=== PATIENT | female | born 1990 | race Caucasian/White ===

== ENCOUNTER 2021-03-06 15:05 | Emergency (ER) | payer MEDICAID, SELFPAY ==
[2021-03-06 14:51] VITALS: BP 127/79; PULSE 111; RESP 22; TEMP 36.9; O2SAT 92; BMI 43.9
--- NOTE | 2021-03-06 15:11 | XR_ITS ---
PROCEDURE: XR CHEST 2V CLINICAL HISTORY: chest pain COMPARISON: No exams were available for comparison FINDINGS: The cardiomediastinal silhouette and pulmonary vascularity are within normal limits. The lungs are clear without infiltrates, suspicious nodules, or pleural effusions. No acute bony abnormalities. IMPRESSION: No acute findings. Dictated by: Clarence Rodriguez MD 03/06/2021 16:15 Clarence Rodriguez MD in [place] 03/06/2021 16:15
--- NOTE | 2021-03-06 15:19 | ECG_ITS ---
APPROVED REPORT Exam: Resting ECG HR:100 bpm ECG Measurements Heart Rate 100 AXES UT 150 P 39 QRSd 90 QRS 90 QT 360 T 1 QTc 464 Conclusion Normal sinus rhythm Rightward axis Borderline ECG Electronically signed by : Roger Teixeira, 03/07/2021 17:28:52
[2021-03-06 15:20] LABS: Basophils # 0.2 K/mm3 (0-0.2); Basophils % 1.3 % (0.1-2.0); Eosinophils # 0.2 K/mm3 (0.0-0.4); Eosinophils % 1.3 % (0.1-12.0); Hematocrit 47.9 % (37.0-47.0); Hemoglobin 16.2 g/dL (12.2-16.2); Lymphocytes # 6.3 K/mm3 (0.7-4.5); Lymphocytes % 35.3 % (10-50); Mean Corpuscular HGB Conc 33.8 g/dL (31.8-35.4); Mean Corpuscular Hemoglobin 30.1 pg (27.0-31.2); Mean Corpuscular Volume 89.1 fl (81-99); Mean Platelet Volume 8.1 fl (7.4-10.4); Monocytes # 1.2 K/mm3 (0.1-1.0); Monocytes % 6.7 % (1.7-9.3); Neutrophils # 9.9 K/mm3 (1.8-7.8); Neutrophils % 55.6 % (37.0-80.0); Platelet Count 429 K/mm3 (142-424); Red Blood Count 5.38 M/mm3 (4.20-5.40); Red Cell Distribution Width 12.8 % (11.5-17.5); White Blood Count 17.8 K/mm3 (4.8-10.8)
[2021-03-06 15:27] LABS: Acetaminophen < 10 ug/ml (10-30); Salicylate < 1.0 mg/dL (2.0-20.0)
[2021-03-06 15:28] LABS: MANUAL DIFFERENTIAL MANUAL DIFFERENTIAL (MANUAL DIFF)
[2021-03-06 15:31] LABS: HCG Qualitative, Serum Negative (Negative)
[2021-03-06 15:33] LABS: Ethyl Alcohol < 10 mg/dl (0-10)
[2021-03-06 15:36] LABS: Lymphocytes % 23 % (10-50); Monocytes % 4 % (2-9); Neutrophils % 66 % (42-76); Platelet Estimate Normal; RBC Morphology Normal; Total Cells Counted 100
[2021-03-06 15:43] LABS: Troponin I < 0.01 ng/ml (0.00-0.034)
[2021-03-06 16:17] VITALS: BP 127/78; PULSE 97; RESP 19; O2SAT 97
--- NOTE | 2021-03-06 16:43 | HMH.EDGENADL ---
ED Disposition Clinical Impression: Heroin overdose Qualifiers: Encounter type: initial encounter Injury intent: accidental or unintentional Qualified Code(s): T40.1X1A - Poisoning by heroin, accidental (unintentional), initial encounter Upper respiratory infection Qualifiers: URI type: unspecified URI Qualified Code(s): J06.9 - Acute upper respiratory infection, unspecified Disposition: Home, Self-Care Condition on Discharge: Fair Instructions: DI for Drug Overdose in Adults, DI for Nausea -- Adult Additional Instructions: Zofran as needed for nausea. Return to the emergency department if any worsening condition. Prescriptions: Ondansetron [Zofran 4mg ODT] 4 mg PO TIDP PRN #10 tab.rapdis PRN Reason: Nausea And Vomiting Prescription Printed Referrals: Provider,Referral, MD [Primary Care Provider] - - Critical Care Critical Care Time: No Attestation: On 03/06/21, the high probability of a clinically significant, sudden or life threatening deterioration of the following system(s) required my full and direct attention, intervention and personal management. The time I documented below is in addition to time spent performing reported procedures but includes the following listed in this critical care notation. Medical Decision Making - [place] Inquiry Pt receiving controlled substance: No Vital Signs: 03/06/21 14:51 03/06/21 16:17 Temperature 98.5 F Temperature Source Oral Pulse Rate 97 H Pulse Rate [Left Radial] 111 H Respiratory Rate 22 19 Blood Pressure 127/78 Blood Pressure [Right Arm] 127/79 Blood Pressure Mean [Right Arm] 95 Blood Pressure Source [Right Arm] Automatic Cuff Blood Pressure Position [Right Arm] Sitting 02 Sat by Pulse Oximetry 92 L 97 Oxygen Delivery Method Room Air - Lab Data Lab Results 03/06/21 14:52: WBC 17.8 H, RBC 5.38, Hgb 16.2, Hct 47.9 H, MCV 89.1, MCH 30.1, MCHC 33.8, RDW 12.8, Plt Count 429 H, MPV 8.1, Neut % (Auto) 55.6, Lymph % (Auto) 35.3, [place] % (Auto) 6.7, Eos % (Auto) 1.3, Baso % (Auto) 1.3, Neut # (Auto) 9.9 H, Lymph # (Auto) 6.3 H, [place] # (Auto) 1.2 H, Eos # (Auto) 0.2, Baso # (Auto) 0.2, Total Counted 100, Neutrophils % (Manual) 66, Band Neutrophils % 7.0, Lymphocytes % (Manual) 23, Monocytes % (Manual) 4, Platelet Estimate Normal, RBC Morphology Normal 03/06/21 14:52: Serum HCG, Qual Negative 03/06/21 14:52: Troponin I < 0.01, Salicylates < 1.0 L, Acetaminophen < 10 L 03/06/21 14:52: Plasma/Serum Alcohol < 10 03/06/21 16:35: Urine Color Yellow, Urine Appearance Clear, Urine pH 6.0, Ur Specific [place] >= 1.030, Urine Protein 1+, Urine Glucose (UA) Negative, Urine Ketones Negative, Urine Blood Negative, Urine Nitrate Negative, Urine Bilirubin Negative, Urine Urobilinogen 1.0, Ur Leukocyte Esterase Negative, Urine RBC None, Urine WBC None, Ur Squamous Epith Cells 5-10, Urine Bacteria None 03/06/21 16:35: Urine Opiates Screen Negative, Urine Methadone Screen Negative, Ur Barbituates Screen Negative, Ur Phencyclidine Scrn Negative, Ur Amphetamines Screen Negative, U Benzodiazepines Scrn Negative, Urine Cocaine Screen Negative, U Marijuana (THC) Screen Negative 03/06/21 17:38: SARS-CoV-2 (PCR) Not detected, Influenza A Untype (PCR) Not detected, Influenza Type B (PCR) Not detected Result diagrams: 03/06/21 14:52 Orders (Tests/Meds): ED MEDICATIONS Discontinued Medications Generic Name Dose Route Start Last Admin Trade Name Crystal PRN Reason Stop Dose Admin Ondansetron HCl 4 mg 03/06/21 18:47 03/06/21 18:54 Ondansetron 4mg/2ml Vial IV 03/06/21 18:48 4 mg ONCE ONE Administration Ondansetron HCl 4 mg 03/06/21 18:47 03/06/21 18:54 Ondansetron 4mg/2ml Vial IV 03/06/21 18:48 Not Given ONCE ONE ORDERS Category Date Time Status Troponin I Q3H Lab 03/06/21 18:15 Ordered Troponin I Q3H Lab 03/06/21 21:15 Ordered - Radiology Data #1 Image(s): Chest Image Reviewed: Yes I have reviewed radiologist's interpretati
[2021-03-06 16:52] LABS: Microscopic, Urine URINE MICROSCOPIC (MICROSCOPIC)
[2021-03-06 16:56] LABS: Appearance,Urine CLEAR (Clear); Bilirubin,Urine Negative (Negative); Blood, Urine Negative (Negative); Color,Urine YELLOW (Yellow); Glucose,Urine (UA) Negative (Negative); Ketones,Urine Negative (Negative); Leukocyte Esterase,Urine Negative (Negative); Nitrate,Urine Negative (Negative); Protein,Urine 1+ (Negative); Specific Gravity, Urine >= 1.030 (1.005-1.030)
[2021-03-06 17:06] LABS: Amphetamine/Metha Screen,Urine Negative ng/ml (<1000)
[2021-03-06 17:07] LABS: Barbiturates Screen,Urine Negative ng/ml (<200); Benzodiazepines Screen,Urine Negative ng/ml (<200)
[2021-03-06 17:08] LABS: Cannabinoid Screen,Urine Negative ng/ml (<50)
[2021-03-06 17:09] LABS: Cocaine Screen,Urine Negative ng/ml (<300); Methadone Screen,Urine Negative ng/ml (<300)
[2021-03-06 17:10] LABS: Opiate Screen,Urine Negative ng/ml (<300)
[2021-03-06 17:11] LABS: Phencyclidine Screen,Urine Negative ng/ml (<25)
[2021-03-06 17:57] LABS: Coronavirus 19, PCR Not Detected (NotDetected); Influenza A, PCR Not Detected (NotDetected); Influenza B, PCR Not Detected (NotDetected)
[2021-03-06 19:14] VITALS: BP 127/85; PULSE 75; RESP 16; TEMP 36.8; O2SAT 97
== END 2021-03-06 19:16 | disposition home or self-care (01) ==
PROVIDERS: Emergency Provider Emergency Medicine
DX: T40.1X1A Poisoning by heroin, accidental (unintentional), initial encounter (principal); J06.9 Acute upper respiratory infection, unspecified
CPT/HCPCS: 71046; 80305; 80329; 81001; 84484; 84703; 85007; 85025; 93005; 96374; 99284; J2405; U0003

== ENCOUNTER 2021-04-29 18:51 | Emergency (ER) | payer MEDICAID, SELFPAY ==
[2021-04-29 18:52] VITALS: BMI 43.9
--- NOTE | 2021-04-29 19:27 | XR_ITS ---
PROCEDURE INFORMATION: Exam: XR Chest Exam date and time: 04/29/2021 7:27 PM Age: 30 years old Clinical indication: Cough and fever; Patient HX: Possible covid, patient states she smokes and vapes TECHNIQUE: Imaging protocol: XR of the chest. Views: 2 views. COMPARISON: CR XR CHEST 2V 03/06/2021 3:35 PM FINDINGS: Lungs: Unremarkable. No consolidation. Pleural spaces: Unremarkable. No pleural effusion. No pneumothorax. Heart/Mediastinum: Unremarkable. No cardiomegaly. Bones/joints: Unremarkable. IMPRESSION: No acute findings. Please note that this does not exclude COVID-19 infection.
[2021-04-29 19:30] VITALS: BP 130/58; PULSE 95; RESP 22; TEMP 36.8; O2SAT 99; BMI 43.9
[2021-04-29 19:40] LABS: Coronavirus 19, PCR Not Detected (NotDetected); Influenza A, PCR Not Detected (NotDetected); Influenza B, PCR Not Detected (NotDetected)
[2021-04-29 19:56] LABS: Basophils # 0.2 K/mm3 (0-0.2); Basophils % 1.5 % (0.1-2.0); Eosinophils # 0.3 K/mm3 (0.0-0.4); Eosinophils % 2.3 % (0.1-12.0); Hematocrit 45.6 % (37.0-47.0); Hemoglobin 15.2 g/dL (12.2-16.2); Lymphocytes # 4.9 K/mm3 (0.7-4.5); Lymphocytes % 34.1 % (10-50); Mean Corpuscular HGB Conc 33.5 g/dL (31.8-35.4); Mean Corpuscular Hemoglobin 30.4 pg (27.0-31.2); Mean Corpuscular Volume 90.9 fl (81-99); Mean Platelet Volume 8.5 fl (7.4-10.4); Monocytes # 0.7 K/mm3 (0.1-1.0); Monocytes % 5.2 % (1.7-9.3); Neutrophils # 8.2 K/mm3 (1.8-7.8); Platelet Count 425 K/mm3 (142-424); Red Blood Count 5.01 M/mm3 (4.20-5.40); White Blood Count 14.3 K/mm3 (4.8-10.8)
[2021-04-29 20:08] LABS: Alanine Aminotransferase 21 U/L (12-78); Albumin Level 4.2 g/dl (3.5-5.0); Albumin/Globulin Ratio 1.2 (1.1-1.8); Alkaline Phosphatase 95 U/L (38-126); Anion Gap 14.7 mEq/L (5-15); Aspartate Amino Transferase 27 U/L (14-36); Bilirubin,Total 0.6 mg/dl (0.2-1.3); Blood Urea Nitrogen 8 mg/dl (7-17); Calcium 9.1 mg/dl (8.4-10.2); Carbon Dioxide 25 mmol/L (22.0-30.0); Chloride 105 mmol/L (98-107); Creatinine Clearance Estimated 109 mL/min (50-200); Estimated Glomerular Filt Rate 118 ml/min (>60); GFR (African American) 143 ML/MIN (>60); Globulin 3.5 g/dL (1.3-3.2); Glucose 122 mg/dl (74-100); Potassium 4.7 mmoL/L (3.5-5.1); Sodium 140 mmol/L (136-145); Total Protein,Serum 7.7 g/dl (6.3-8.2)
[2021-04-29 20:13] LABS: C-Reactive Protein 12.4 mg/L (0-4)
[2021-04-29 20:26] LABS: Procalcitonin 0.047 ng/mL (0.0-2.0)
[2021-04-29 20:40] LABS: Erythrocyte Sedimentation Rate 74 mm/hr (0-20)
--- NOTE | 2021-04-29 23:24 | HMH.EDURI ---
ED Disposition Clinical Impression: Bronchitis, SIRS (systemic inflammatory response syndrome) Disposition: Home, Self-Care Condition on Discharge: Good Instructions: DI for Acute Bronchitis Additional Instructions: fluids and see pcp for follow up Prescriptions: levoFLOXacin [Levaquin 500mg tab] 500 mg PO DAILY #7 tab Transmission Status: Pending to [facility] predniSONE [Prednisone 20mg Tab] 20 mg PO BID #10 tab Transmission Status: Pending to [facility] Referrals: Provider,Referral, [Primary Care Provider] - - Critical Care Critical Care Time: No Attestation: On 04/29/21, the high probability of a clinically significant, sudden or life threatening deterioration of the following system(s) required my full and direct attention, intervention and personal management. The time I documented below is in addition to time spent performing reported procedures but includes the following listed in this critical care notation. Medical Decision Making - Medical Records Medical records reviewed: Yes: I reviewed the patient's medical records. - [place] Inquiry Pt receiving controlled substance: No Vital Signs: 04/29/21 19:30 Temperature 98.3 F Temperature Source Oral Pulse Rate [Right] 95 H Respiratory Rate 22 Blood Pressure [Left Arm] 130/58 L Blood Pressure Mean [Left Arm] 82 Blood Pressure Source [Left Arm] Automatic Cuff Blood Pressure Position [Left Arm] Sitting 02 Sat by Pulse Oximetry 99 Oxygen Delivery Method Room Air - Lab Data Lab results reviewed: Yes: I reviewed the patient's lab results. Lab Results 04/29/21 19:24: SARS-CoV-2 (PCR) Not detected, Influenza A Untype (PCR) Not detected, Influenza Type B (PCR) Not detected 04/29/21 19:45: WBC 14.3 H, RBC 5.01, Hgb 15.2, Hct 45.6, MCV 90.9, MCH 30.4, MCHC 33.5, RDW 13.0, Plt Count 425 H, MPV 8.5, Neut % (Auto) 57.0, Lymph % (Auto) 34.1, [place] % (Auto) 5.2, Eos % (Auto) 2.3, Baso % (Auto) 1.5, Neut # (Auto) 8.2 H, Lymph # (Auto) 4.9 H, [place] # (Auto) 0.7, Eos # (Auto) 0.3, Baso # (Auto) 0.2, ESR 74 H 04/29/21 19:45: Sodium 140, Potassium 4.7, Chloride 105, Carbon Dioxide 25, Anion Gap 14.7, BUN 8, Creatinine 0.60, Estimated Creat Clear 109, Estimated GFR 118, Est GFR ( Amer) 143, Glucose 122 H, Calcium 9.1, Total Bilirubin 0.6, AST 27, ALT 21, Alkaline Phosphatase 95, C-Reactive Protein 12.4 H, Total Protein 7.7, Albumin 4.2, Globulin 3.5 H, Albumin/Globulin Ratio 1.2, Procalcitonin 0.047 Result diagrams: 04/29/21 19:45 04/29/21 19:45 Orders (Tests/Meds): ED MEDICATIONS Generic Name Dose Route Start Last Admin Trade Name Freq PRN Reason Stop Dose Admin Sodium Chloride 1,000 mls @ 999 mls/hr 04/29/21 19:30 04/29/21 20:00 Sod Chlor 0.9% 1000ml Bag IV 04/29/21 20:30 999 mls/hr .Q1H1M KLARISSA Administration Discontinued Medications Generic Name Dose Route Start Last Admin Trade Name Freq PRN Reason Stop Dose Admin Dexamethasone Sodium Phosphate 10 mg 04/29/21 19:27 04/29/21 20:00 Dexamethasone 4mg/Ml 1ml Vial IV 04/29/21 19:28 10 mg ONCE ONE Administration Ketorolac Tromethamine 30 mg 04/29/21 19:27 04/29/21 20:00 Ketorolac 30mg/Ml Vial IV 04/29/21 19:28 30 mg ONCE ONE Administration - Radiology Data #1 Image(s): Chest Image Reviewed: Yes I have reviewed radiologist's interpretation Preliminary Findings: Normal/NAD Medical Decision Narrative: has bronchitis and no covid -19 and stable labs URI/Sore Throat HPI - General Chief Complaint: Upper Respiratory Infection Stated Complaint: FEVER,COUGH,L FOOT SWOLLEN Time Seen by Provider: 04/29/21 20:50 Mode of Arrival: Ambulatory Source of Information: Patient, Medical Record Limitations: No Limitations Description of Symptoms (Recalled from ER Triage Doc. by RN): Pt states she has SOA and cough for a week, and now her cough has become productive of green mucous. Pt had fever at home, but has resolved wi
[2021-04-29 23:42] VITALS: BP 142/62; PULSE 84; RESP 18; TEMP 36.8; O2SAT 99
== END 2021-04-29 23:44 | disposition home or self-care (01) ==
PROVIDERS: Emergency Provider Emergency Medicine
DX: J20.9 Acute bronchitis, unspecified (principal); R65.10 Systemic inflammatory response syndrome (SIRS) of non-infectious origin without acute organ dysfunction; F17.210 Nicotine dependence, cigarettes, uncomplicated
CPT/HCPCS: 71046; 80053; 84145; 85025; 85651; 86140; 96365; 96375; 99283; U0003

== ENCOUNTER 2021-05-14 09:29 | Emergency (ER) | payer MEDICAID, SELFPAY ==
[2021-05-14 10:12] VITALS: BP 126/77; PULSE 112; RESP 21; TEMP 37.2; O2SAT 96; BMI 44.8
--- NOTE | 2021-05-14 10:18 | HMH.EDUTC ---
[facility] [place] Clinical Impression: Sinusitis, Encounter for laboratory testing for COVID-19 virus Disposition: Home, Self-Care Condition on Discharge: Good Instructions: Sinusitis Additional Instructions: *Monitor Temp, Over the counter Motrin or Tylenol as directed/as needed Tylenol every 4 hours and Motrin every 6 hours (as long as your family doctor has told you that you can take it) for fever or pain. and straight to ER if unable to lower temp less than 101.0 after medication given *Warm salt water gargles may help to soothe the throat *Throat Lozenges *Warm fluids like tea with honey may help to soothe the throat *Sleep elevated *Humidifier/Vaporizer Follow up IMMEDIATELY for new or worsening symptoms or no Noticeable improvement over the next 48-72 hours. 911 for difficulty breathing or swallowing You were tested for today for COVID19 your test result should be back in the next 24-48 hours, You was give handout for how to log onto the [facility] [employer] Portal to check your results if you have trouble accessing or do not have internet you may call You was given a handout with instructions for Self Quarantine and Self isolation for while you wait on test results and what to do if they are positive If you are positive the Health Dept will be contacting you also Make sure to take your Vitamins Vit. C Vit D and Zinc if you can take them Prescriptions: Fluticasone Propionate [Flonase Allergy Relief NS] 1 spray NS DAILY #1 each Transmission Status: Received by [facility] Azithromycin [Z-Jayden 250mg Tab] 250 mg PO DIRECTED #6 tab Transmission Status: Received by [facility] Referrals: Benjamin Chen MD [Primary Care Provider] - As needed Forms: Work/School Release Time of Disposition: 10:30 Medical Decision Making - [place] Inquiry Pt receiving controlled substance: No [place] was queried for this patient: No Vital Signs: 05/14/21 10:12 05/14/21 10:33 Temperature 99 F 99 F Temperature Source Oral Pulse Rate 112 H Pulse Rate [Left] 112 H Respiratory Rate 21 21 Blood Pressure 126/77 Blood Pressure [Right Arm] 126/77 Blood Pressure Mean [Right Arm] 93 02 Sat by Pulse Oximetry 96 [facility] [place] [facility] [place] - General Stated complaint: covid symptoms Time Seen by Provider: 05/14/21 10:18 Mode of Arrival: Ambulatory Source of Information: Patient Limitations: No Limitations Description of Symptoms (Recalled from Triage Doc. by RN): pt c/o fever, cough, body aches, and diarhea. pt was dx with bronchitis a month ago and still is not feeling any better. HEENT Symptoms (Recalled from RN notes): No Resp Symptoms (Recalled from RN notes): Yes (cough) Skin Symptoms (Recalled from RN notes): No MS Symptoms (Recalled from RN notes): No Functional Status (Recalled from RN notes): body aches and fever hx - History of Present Illness Provider Complaint: Patient states that she was seen and treated about a month ago for Bronchitis and has continued to feels bad off and on since States that she has started to have cough, body aches, fever, and chills States that this morning it was like she couldnt get warm and she was concerned she was getting sick again with the bronchitis - Related Data Previous Rx's Medication Instructions Recorded Ondansetron [Zofran 4mg ODT] 4 mg PO TIDP PRN #10 tab.rapdis 03/06/21 levoFLOXacin [Levaquin 500mg 500 mg PO DAILY #7 tab 04/29/21 tab] predniSONE [Prednisone 20mg 20 mg PO BID #10 tab 04/29/21 Tab] Azithromycin [Z-Jayden 250mg Tab] 250 mg PO DIRECTED #6 tab 05/14/21 Fluticasone Propionate [Flonase 1 spray NS DAILY #1 each 05/14/21 Allergy Relief NS] Allergies Allergy/AdvReac Type Severity Reaction Status Date / Time meperidine [From Demerol] Allergy Verified 05/14/21 10:16 From Penicillin V Potassium Allergy Unknown Uncoded 08/09/17 14:54 Penicillin Allergy Unknown Uncoded 08/09/17 14:54 - Worker's Comp Is this a Worker's Comp case?:
[2021-05-14 10:33] VITALS: BP 126/77; PULSE 112; RESP 21; TEMP 37.2
== END 2021-05-14 10:34 | disposition home or self-care (01) ==
PROVIDERS: Emergency Provider Nurse Practitioner; PCP Internal Medicine Nephrology
DX: U07.1 COVID-19 (principal); R50.9 Fever, unspecified; R05 Cough; R52 Pain, unspecified; R19.7 Diarrhea, unspecified; Z72.0 Tobacco use; Z88.0 Allergy status to penicillin; Z88.8 Allergy status to other drugs, medicaments and biological substances
CPT/HCPCS: 99202; C9803; G0463; U0003; U0005

== ENCOUNTER → 2021-05-27 14:42 | Outpatient (CLI) | payer MEDICAID, SELFPAY | PROVIDERS: Visit Provider Nurse Practitioner | DX: Z20.822 Contact with and (suspected) exposure to COVID-19 (principal); U07.1 COVID-19 | CPT/HCPCS: C9803; U0003; U0005 ==

== ENCOUNTER 2021-06-30 19:27 | Emergency (ER) | payer MEDICAID, SELFPAY ==
[2021-06-30 19:41] VITALS: BP 133/83; PULSE 111; RESP 16; TEMP 36.9; O2SAT 99; BMI 44.8
[2021-06-30 21:03] VITALS: PULSE 111; RESP 16; O2SAT 99; BMI 44.8
--- NOTE | 2021-06-30 21:27 | HMH.EDUTC ---
[facility] [place] Disposition Clinical Impression: Dependent edema Disposition: Home, Self-Care Condition on Discharge: Good Instructions: DI for Dependent Edema, Low-Sodium Diet Additional Instructions: Low salt diet may help with swelling in feet and ankle When sitting make sure to prop legs up above the level of the heart to help with swelling Wear supportive socks and shoes may help with swelling in ankle and feet Follow up with your Family Doctor if swelling returns Referrals: Provider,Referral, MD [Primary Care Provider] - As needed Forms: Work/School Release Time of Disposition: 21:31 Medical Decision Making - [place] Inquiry Pt receiving controlled substance: No [place] was queried for this patient: No Vital Signs: 06/30/21 19:41 06/30/21 21:03 06/30/21 21:30 Temperature 98.4 F 98.4 F Temperature Source Oral Pulse Rate 111 H Pulse Rate [Right] 111 H 111 H Respiratory Rate 16 16 16 Blood Pressure 133/83 Blood Pressure [Right Arm] 133/83 Blood Pressure Mean [Right Arm] 99 02 Sat by Pulse Oximetry 99 99 Oxygen Delivery Method Room Air Room Air [facility] [place] HPI - General Stated complaint: feet and ankle swelling Time Seen by Provider: 06/30/21 21:28 Mode of Arrival: Ambulatory Source of Information: Patient Limitations: No Limitations Description of Symptoms (Recalled from Triage Doc. by RN): per triage for decision: pt c/o bilateral ankle and feet swelling x one month HEENT Symptoms (Recalled from RN notes): No Resp Symptoms (Recalled from RN notes): No Skin Symptoms (Recalled from RN notes): No MS Symptoms (Recalled from RN notes): No Functional Status (Recalled from RN notes): na - History of Present Illness Provider Complaint: Patient states that she has been having swelling on and off in both ankle for over a month States that swelling is worse when she has been walking on them alot or sitting too much States that she has been trying to get into see her PCP but they will not take her insurance right now so she came in to have them checked at the [facility] - Related Data Previous Rx's Medication Instructions Recorded Ondansetron [Zofran 4mg ODT] 4 mg PO TIDP PRN #10 tab.rapdis 03/06/21 levoFLOXacin [Levaquin 500mg 500 mg PO DAILY #7 tab 04/29/21 tab] predniSONE [Prednisone 20mg 20 mg PO BID #10 tab 04/29/21 Tab] Azithromycin [Z-Jayden 250mg Tab] 250 mg PO DIRECTED #6 tab 05/14/21 Fluticasone Propionate [Flonase 1 spray NS DAILY #1 each 05/14/21 Allergy Relief NS] Allergies Allergy/AdvReac Type Severity Reaction Status Date / Time meperidine [From Demerol] Allergy Verified 05/14/21 10:16 From Penicillin V Potassium Allergy Unknown Uncoded 08/09/17 14:54 Penicillin Allergy Unknown Uncoded 08/09/17 14:54 - Worker's Comp Is this a Worker's Comp case?: No [facility] History - Hepatitis A Screen Drug use history?: No High risk sexual behaviors?: No History of sexually transmitted infection?: No Currently employed?: No Childcare worker?: No Do you have indoor plumbing?: Yes Do you have electricity?: Yes Attestation statement:: This patient has been screened for Hepatitis A risk factors. I have reviewed the patient's past medical history: Yes Medical History: Denies:: Diabetes Mellitus Type 1, Diabetes Mellitus Type 2 - Social History Smoking Status: Current every day smoker Tobacco Type: cigarettes # Packs/Day (cigarettes): 1 Alcohol Intake: never Substance Use Type: heroin, opiates, methamphetamine Occupational Status: employed ROS Obtained: Yes All systems reviewed & no additional complaints, Yes Systems reviewed as appropriate & no additional complaints - Constitutional Constitutional: Reports system reviewed and no additional complaints, except as docu, Denies body ache, Denies chills, Denies fever(s) - Eyes Eyes: Reports system reviewed and no additional complaints, except as docu - ENT Ears, Nose, Mouth, and Throat: Reports system reviewed and
[2021-06-30 21:30] VITALS: BP 133/83; PULSE 111; RESP 16; TEMP 36.9; O2SAT 99
== END 2021-06-30 21:40 | disposition home or self-care (01) ==
LOC: ER 19:41 → UTC 19:44
PROVIDERS: Emergency Provider Nurse Practitioner
DX: R22.41 Localized swelling, mass and lump, right lower limb (principal); R22.42 Localized swelling, mass and lump, left lower limb; F17.210 Nicotine dependence, cigarettes, uncomplicated; Z88.0 Allergy status to penicillin
CPT/HCPCS: 99202; G0463

== ENCOUNTER 2021-09-22 17:52 | Emergency (ER) | payer MEDICAID, SELFPAY ==
[2021-09-22 18:55] VITALS: BP 116/74; PULSE 91; RESP 22; TEMP 36.9; O2SAT 98; BMI 47.5
[2021-09-22 19:42] LABS: UTC Influenza A Antigen Negative (Negative)
[2021-09-22 19:43] LABS: UTC Influenza B Antigen Negative (Negative)
--- NOTE | 2021-09-22 19:45 | HMH.EDUTC ---
[facility] [place] Clinical Impression: Viral upper respiratory tract infection with cough Disposition: Home, Self-Care Condition on Discharge: Good Instructions: Cough, Sore Throat, DI for Fever (Symptom) -- Adult Additional Instructions: *Monitor Temp, Over the counter Motrin or Tylenol as directed/as needed Tylenol every 4 hours and Motrin every 6 hours (as long as your family doctor has told you that you can take it) for fever or pain. and straight to ER if unable to lower temp less than 101.0 after medication given *Warm salt water gargles may help to soothe the throat *Throat Lozenges *Warm fluids like tea with honey may help to soothe the throat *Sleep elevated *Humidifier/Vaporizer *Bromfed may cause drowsiness. Know how it effects you (your child) before driving, caring for small child, or sending your child to school. Not other antihistamines/allergy medications while taking bromfed Your throat swab was sent for culture. Those results are typically sent to your primary care. Be sure to follow up in 2-3 days with your family doctor/primary care physician if no improvement so they can review those result and treat if necessary. If you don?t have a primary care doctor, I recommend you get one but in the mean time, you will have to return to a walk in clinic Follow up IMMEDIATELY for new or worsening symptoms or no Noticeable improvement over the next 48-72 hours. 911 for difficulty breathing or swallowing You were tested for today for COVID19 your test result should be back in the next 24-72 hours, you may check your results on the [facility] [employer] [facility] portal if you have trouble logging on you may call support to help you If you are positive someone from the hospital will be calling you Make sure to take your Vitamins Vit. C Vit D and Zinc if you can take them Prescriptions: Brompheniramine/Pseudoephed/Dm [Bromfed Dm Cough Syrup] 5 - 10 ml PO Q46H PRN #200 ml PRN Reason: Cough Transmission Status: Pending to [facility] Referrals: Provider,Referral, [Primary Care Provider] - As needed Forms: Work/School Release Time of Disposition: 20:19 Medical Decision Making - [place] Inquiry Pt receiving controlled substance: No [place] was queried for this patient: No Vital Signs: 09/22/21 18:55 Temperature 98.5 F Temperature Source Oral Pulse Rate [Left Brachial] 91 H Respiratory Rate 22 Blood Pressure [Right Arm] 116/74 Blood Pressure Mean [Right Arm] 88 Blood Pressure Source [Right Arm] Automatic Cuff Blood Pressure Position [Right Arm] Sitting 02 Sat by Pulse Oximetry 98 Oxygen Delivery Method Room Air - Lab Data Lab results reviewed: Yes: I reviewed the patient's lab results. Lab Results 09/22/21 19:08: Influenza Type A Ag Negative, Influenza Type B Ag Negative 09/22/21 19:08: Group A Strep Rapid Negative Orders (Tests/Meds): ORDERS Category Date Time Status Covid-19 Nasal PCR ([facility]) Routine Lab 09/22/21 19:02 Received Strep Screen Confirmation Stat Micro 09/22/21 19:08 Received [facility] UTC HPI - General Stated complaint: covid test/treated for symptoms Time Seen by Provider: 09/22/21 19:45 Mode of Arrival: Ambulatory Source of Information: Patient Limitations: No Limitations Description of Symptoms (Recalled from Triage Doc. 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
[2021-09-22 20:04] LABS: Strep Scrn Group A (Rapid) Negative (Negative)
[2021-09-22 20:12] VITALS: BP 116/74; PULSE 91; RESP 22; TEMP 36.9; O2SAT 98
== END 2021-09-22 20:27 | disposition home or self-care (01) ==
PROVIDERS: Emergency Provider Nurse Practitioner
DX: J06.9 Acute upper respiratory infection, unspecified (principal); U07.1 COVID-19; Z88.0 Allergy status to penicillin
CPT/HCPCS: 87430; 87804; 99203; C9803; G0463; U0003; U0005

== ENCOUNTER 2021-10-27 19:34 | Emergency (ER) | payer MEDICAID, SELFPAY ==
[2021-10-27 19:35] VITALS: BP 137/96; PULSE 73; RESP 16; TEMP 36.8; O2SAT 98; BMI 44.8
--- NOTE | 2021-10-27 20:41 | HMH.EDUTC ---
[facility] [place] Clinical Impression: Strep throat Disposition: Home, Self-Care Condition on Discharge: Good Instructions: Strep Throat, DI for Strep Throat Additional Instructions: Drink plenty of fluids. Take tylenol or ibuprofen for pain or fever. Take the medications as directed. Follow up with your regular doctor. GO TO THE ER FOR ANY WORSENING SYMPTOMS Prescriptions: Ondansetron [Zofran 4mg ODT] 4 mg PO Q8HP PRN #20 tab PRN Reason: Nausea Transmission Status: [id number] methylPREDNISolone [Medrol] 4 mg PO DIRECTED 6 Days #21 packet Transmission Status: [facility] by [facility] Cefdinir [Omnicef 300mg Capsule] 300 mg PO BID #20 cap Transmission Status: [facility] Referrals: Provider,Referral, [Primary Care Provider] - Time of Disposition: 21:04 Medical Decision Making - Medical Records Medical records reviewed: No: I reviewed the patient's medical records. - [place] Inquiry Pt receiving controlled substance: No Vital Signs: 10/27/21 19:35 10/27/21 21:04 Temperature 98.2 F 98.2 F Temperature Source Oral Oral Pulse Rate 74 Pulse Rate [Right] 73 Respiratory Rate 16 16 Blood Pressure 137/96 H Blood Pressure [Right Arm] 137/96 H Blood Pressure Mean [Right Arm] 109 Blood Pressure Source [Right Arm] Automatic Cuff Blood Pressure Position [Right Arm] Sitting 02 Sat by Pulse Oximetry 98 Oxygen Delivery Method Room Air Room Air - Lab Data Lab results reviewed: Yes: I reviewed the patient's lab results. Lab Results 10/27/21 20:49: Strep Scn Rapid Clinic Positive A [facility] [place] HPI - General Stated complaint: sore throat; sinus pressure Time Seen by Provider: 10/27/21 21:01 - History of Present Illness Provider Complaint: She states that she has had a sore throat for the past 2 days. - Related Data Previous Rx's Medication Instructions Recorded Brompheniramine/Pseudoephed/Dm 5 - 10 ml PO Q46H PRN #200 ml 09/22/21 [Bromfed Dm Cough Syrup] Cefdinir [Omnicef 300mg Capsule] 300 mg PO BID #20 cap 10/27/21 Ondansetron [Zofran 4mg ODT] 4 mg PO Q8HP PRN #20 tab 10/27/21 methylPREDNISolone [Medrol] 4 mg PO DIRECTED 6 Days #21 10/27/21 packet Allergies Allergy/AdvReac Type Severity Reaction Status Date / Time meperidine [From Demerol] Allergy Verified 05/14/21 10:16 Penicillins Allergy Verified 09/22/21 19:14 [facility] History - Hepatitis A Screen Attestation statement:: This patient has been screened for Hepatitis A risk factors. I have reviewed the patient's past medical history: Yes Medical History: Denies:: Diabetes Mellitus Type 1, Diabetes Mellitus Type 2 - Social History Smoking Status: Current every day smoker Tobacco Type: cigarettes # Packs/Day (cigarettes): 1 Alcohol Intake: never Substance Use Type: heroin, opiates, methamphetamine Occupational Status: other ROS Obtained: Yes All systems reviewed & no additional complaints - Constitutional Constitutional: Reports as per HPI - Eyes Eyes: Denies eye discharge - ENT Ears, Nose, Mouth, and Throat: Reports as per HPI - Cardiovascular Cardiovascular: Denies chest pain - Respiratory Respiratory: Denies chest congestion, Reports cough Physical Exam - General General appearance: alert, in no apparent distress - Head Head exam: atraumatic, normocephalic, normal inspection - Eye Eye exam: Present: normal appearance, PERRL, EOMI - ENT ENT exam: Present: mucous membranes moist, normal external ear exam - Expanded ENT Exam TM/Canal exam: Bilateral TM: erythema, bulging Nose exam: Absent: sinus tenderness Nasal speculum exam: Bilateral: normal Mouth exam: Present: normal external inspection, tongue normal. Absent: drooling Teeth exam: Present: normal inspection Throat exam: Present: tonsillar erythema, tonsillomegaly, tonsillar exudate. Absent: R peritonsillar mass, L peritonsillar
[2021-10-27 20:54] LABS: UTC Strep Screen (Rapid) Positive (Negative)
[2021-10-27 21:04] VITALS: BP 137/96; PULSE 74; RESP 16; TEMP 36.8; O2SAT 98
== END 2021-10-27 21:04 | disposition home or self-care (01) ==
PROVIDERS: Emergency Provider Nurse Practitioner Family
DX: J02.0 Streptococcal pharyngitis (principal); F17.210 Nicotine dependence, cigarettes, uncomplicated
CPT/HCPCS: 87880; 99212; G0463

== ENCOUNTER 2021-12-27 10:56 | Emergency (ER) | payer MEDICAID, SELFPAY ==
[2021-12-27 10:57] VITALS: BP 145/89; PULSE 95; RESP 16; TEMP 36.9; O2SAT 98; BMI 47.5
--- NOTE | 2021-12-27 11:01 | HMH.EDNVD ---
ED Disposition Clinical Impression: Gastroenteritis Disposition: Home, Self-Care Condition on Discharge: Fair Instructions: DI for Diarrhea and Traveler's Diarrhea -- Adult, DI for Nausea -- Adult, Nausea and Vomiting-Adult Additional Instructions: Please stick to a clear liquid diet for the next day or 2. Return to the emergency department if you feel worse in any way. Follow-up with your primary care physician in about 3 to 4 days if you do not improve. Prescriptions: Metoclopramide HCl [Reglan 10mg Tab] 10 mg PO QID PRN #20 tab PRN Reason: Nausea Transmission Status: Pending to [id number] Referrals: Provider,Referral, [Primary Care Provider] - Time of Disposition: 13:14 - Critical Care Critical Care Time: No Attestation: On , the high probability of a clinically significant, sudden or life threatening deterioration of the following system(s) required my full and direct attention, intervention and personal management. The time I documented below is in addition to time spent performing reported procedures but includes the following listed in this critical care notation. Medical Decision Making - [place] Inquiry Pt receiving controlled substance: No Vital Signs: 12/27/21 10:57 Temperature 98.5 F Temperature Source Oral Pulse Rate [Radial] 95 H Respiratory Rate 16 Blood Pressure [Right Arm] 145/89 H Blood Pressure Mean [Right Arm] 107 Blood Pressure Position [Right Arm] Sitting 02 Sat by Pulse Oximetry 98 Oxygen Delivery Method Room Air - Lab Data Lab results reviewed: Yes: I reviewed the patient's lab results. Lab Results 12/27/21 11:15: Urine Color Yellow, Urine Appearance Clear, Urine pH 7.5, Ur Specific [place] 1.015, Urine Protein Negative, Urine Glucose (UA) Negative, Urine Ketones Negative, Urine Blood Negative, Urine Nitrate Negative, Urine Bilirubin Negative, Urine Urobilinogen 0.2, Ur Leukocyte Esterase Trace, Urine RBC Occasional, Urine WBC Occasional, Ur Squamous Epith Cells 3-5, Urine Bacteria 1+ 12/27/21 11:25: WBC 13.4 H, RBC 5.60 H, Hgb 17.0 H, Hct 49.7 H, MCV 88.8, MCH 30.3, MCHC 34.2, RDW 13.8, Plt Count 436 H, MPV 8.2, Neut % (Auto) 68.6, Lymph % (Auto) 18.7, [place] % (Auto) 6.9, Eos % (Auto) 2.7, Baso % (Auto) 3.1 H, Neut # (Auto) 9.2 H, Lymph # (Auto) 2.5, [place] # (Auto) 0.9, Eos # (Auto) 0.4, Baso # (Auto) 0.4 H 12/27/21 11:25: Sodium 138, Potassium 3.8, Chloride 102, Carbon Dioxide 26, Anion Gap 13.8, BUN 10, Creatinine 0.70, Estimated Creat Clear 93, Estimated GFR 98, Est GFR ( Amer) 119, Glucose 116 H, Calcium 9.3, Total Bilirubin 1.0, AST 27, ALT 24, Alkaline Phosphatase 91, Total Protein 7.7, Albumin 4.3, Globulin 3.4 H, Albumin/Globulin Ratio 1.3, Lipase 77 12/27/21 11:25: Serum HCG, Qual Negative 12/27/21 11:25: SARS-CoV-2 (PCR) Not detected, Influenza A Untype (PCR) Not detected, Influenza Type B (PCR) Not detected Result diagrams: 12/27/21 11:25 12/27/21 11:25 Orders (Tests/Meds): ED MEDICATIONS Discontinued Medications Generic Name Dose Route Start Last Admin Trade Name Crystal PRN Reason Stop Dose Admin Dicyclomine HCl 20 mg 12/27/21 11:57 12/27/21 12:03 Dicyclomine 20 Mg/2ml Vial IM 12/27/21 11:58 20 mg ONCE ONE Administration Metoclopramide HCl 10 mg 12/27/21 12:20 12/27/21 12:20 Metoclopramide Hcl 10mg/2ml Vial IVP 12/27/21 12:21 10 mg ONCE ONE Administration Ondansetron HCl 4 mg 12/27/21 11:09 12/27/21 11:29 Ondansetron 4mg/2ml Vial IV 12/27/21 11:10 4 mg ONCE ONE Administration Medical Decision Narrative: The patient's work-up in the emergency department today did not reveal any life-threatening or dangerous causes for the patient's symptoms. Her symptoms seem to be secondary to gastroenteritis. The patient is status post cystectomy and appendectomy. She has an elevated white blood cell count as well as hematocrit, hemoglobin, and platelet count. The patient continued to vomit after Zofran but af
[2021-12-27 11:22] LABS: Microscopic, Urine URINE MICROSCOPIC (MICROSCOPIC)
[2021-12-27 11:30] LABS: Coronavirus 19, PCR Not Detected (NotDetected); Influenza A, PCR Not Detected (NotDetected); Influenza B, PCR Not Detected (NotDetected)
[2021-12-27 11:38] LABS: Appearance,Urine CLEAR (Clear); Bilirubin,Urine Negative (Negative); Blood, Urine Negative (Negative); Color,Urine YELLOW (Yellow); Glucose,Urine (UA) Negative (Negative); Ketones,Urine Negative (Negative); Leukocyte Esterase,Urine TRACE (Negative); Nitrate,Urine Negative (Negative); PH,Urine 7.5 (5.0-8.5); Protein,Urine Negative (Negative); Specific Gravity, Urine 1.015 (1.005-1.030); Urobilinogen,Urine 0.2 EU/dl (0.2)
[2021-12-27 11:42] LABS: Basophils # 0.4 K/mm3 (0-0.2); Basophils % 3.1 % (0.1-2.0); Eosinophils # 0.4 K/mm3 (0.0-0.4); Eosinophils % 2.7 % (0.1-12.0); Hematocrit 49.7 % (37.0-47.0); Lymphocytes # 2.5 K/mm3 (0.7-4.5); Lymphocytes % 18.7 % (10-50); Mean Corpuscular HGB Conc 34.2 g/dL (31.8-35.4); Mean Corpuscular Hemoglobin 30.3 pg (27.0-31.2); Mean Corpuscular Volume 88.8 fl (81-99); Mean Platelet Volume 8.2 fl (7.4-10.4); Monocytes # 0.9 K/mm3 (0.1-1.0); Monocytes % 6.9 % (1.7-9.3); Neutrophils # 9.2 K/mm3 (1.8-7.8); Neutrophils % 68.6 % (37.0-80.0); Platelet Count 436 K/mm3 (142-424); Red Cell Distribution Width 13.8 % (11.5-17.5); White Blood Count 13.4 K/mm3 (4.8-10.8)
[2021-12-27 11:44] LABS: Chloride 102 mmol/L (98-107)
[2021-12-27 11:45] LABS: Potassium 3.8 mmoL/L (3.5-5.1); Sodium 138 mmol/L (136-145)
[2021-12-27 11:47] LABS: Alanine Aminotransferase 24 U/L (12-78); Alkaline Phosphatase 91 U/L (38-126); Anion Gap 13.8 mEq/L (5-15); Aspartate Amino Transferase 27 U/L (14-36); Blood Urea Nitrogen 10 mg/dl (7-17); Carbon Dioxide 26 mmol/L (22.0-30.0); Creatinine Clearance Estimated 93 mL/min (50-200); Estimated Glomerular Filt Rate 98 ml/min (>60); GFR (African American) 119 ML/MIN (>60)
--- NOTE | 2021-12-27 11:47 | PC.NURSE ---
in with pt
[2021-12-27 11:48] LABS: Albumin Level 4.3 g/dl (3.5-5.0); Albumin/Globulin Ratio 1.3 (1.1-1.8); Calcium 9.3 mg/dl (8.4-10.2); Globulin 3.4 g/dL (1.3-3.2); Glucose 116 mg/dl (74-100); HCG Qualitative, Serum Negative (Negative); Lipase 77 U/L (23-300); Total Protein,Serum 7.7 g/dl (6.3-8.2)
[2021-12-27 12:00] LABS: Bacteria,Urine 1+ /lpf; RBC,Urine Occasional #/hpf (0-3); WBC,Urine Occasional #/hpf (0-3)
[2021-12-27 14:07] VITALS: BP 132/74; PULSE 78; RESP 16; TEMP 36.6; O2SAT 98
== END 2021-12-27 14:09 | disposition home or self-care (01) ==
PROVIDERS: Emergency Provider Emergency Medicine
DX: R11.2 Nausea with vomiting, unspecified (principal); R19.7 Diarrhea, unspecified; R10.9 Unspecified abdominal pain; D72.829 Elevated white blood cell count, unspecified; F17.210 Nicotine dependence, cigarettes, uncomplicated; Z20.822 Contact with and (suspected) exposure to COVID-19; Z79.52 Long term (current) use of systemic steroids; Z79.899 Other long term (current) drug therapy; Z88.0 Allergy status to penicillin; Z88.8 Allergy status to other drugs, medicaments and biological substances
CPT/HCPCS: 80053; 81001; 83690; 84703; 85025; 96374; 96375; 99285; C9803; J2405; U0003; U0005

== ENCOUNTER 2022-05-24 13:33 | Emergency (ER) | payer MEDICAID, SELFPAY ==
[2022-05-24 13:50] VITALS: BP 135/86; PULSE 100; RESP 20; TEMP 36.9; O2SAT 95; BMI 48.9
--- NOTE | 2022-05-24 13:50 | EXP.UTC ---
Discharge Plan Disposition Patient Disposition: Home, Self-Care Condition: Good Prescriptions Prescriptions: New benzonatate [benzonatate] 100 mg capsule 100 mg PO TIDP PRN (Reason: Cough) Qty: 30 0RF azithromycin [Zithromax] 250 mg tablet 250 mg PO UD DOSE PK Qty: 6 0RF Rx Instructions: Take two (2) tablets today, then one (1) tablet days #2 thru #5 No Action [id number] ML syrup 5 - 10 ml PO Q46H PRN (Reason: Cough) Qty: 200 0RF metoclopramide HCl 10 MG tablet 10 mg PO QID PRN (Reason: Nausea) Qty: 20 0RF methylprednisolone 4 MG tablets,dose pack 4 mg PO DIRECTED 6 Days Qty: 21 0RF cefdinir 300 MG capsule 300 mg PO BID Qty: 20 0RF ondansetron 4 MG tablet,disintegrating 4 mg PO Q8HP PRN (Reason: Nausea) Qty: 20 0RF Referrals Follow up/Referrals: Soraida Benson [Primary Care Provider] - See instructions Activity Restrictions/Add. Instructions Additional Instructions/Restrictions: Drink plenty of fluids. Take tylenol or ibuprofen for pain or fever. Take the medications as directed. Follow up with your regular doctor. GO TO THE ER FOR ANY WORSENING SYMPTOMS Quarantine until you know the results of your covid-19 test. Notify your school or workplace of your results and follow their instructions regarding return to work/school. Clinical Impressions Clinical Impression: Bronchitis, Exposure to 2019 novel coronavirus Instructions Patient Instructions: DI for Acute Bronchitis, Coronavirus Disease 2019, Preventing the Spread of Coronavirus Discharge Instructions Discharge ED Provider: Peter Freire [facility] General Stated complaint: congestion,sinus pressure Time Seen by Provider: 05/24/22 14:25 History of Present Illness Provider Complaint: She states that for the past 2 days she has had sore throat, chills, body aches and low grade fever. She has been exposed to covid-19. Related Data Previous Rx's Medication Instructions Recorded [id number] 5 - 10 ml PO Q46H PRN Cough #200 mL 09/22/21 2 mg-30 mg-10 mg/5 mL oral syrup cefdinir 300 mg capsule 300 mg PO BID #20 caps 10/27/21 methylprednisolone 4 mg tablets in 4 mg PO DIRECTED 6 days #21 10/27/21 a dose pack packets ondansetron 4 mg disintegrating 4 mg PO Q8HP PRN Nausea #20 tabs 10/27/21 tablet metoclopramide HCl 10 mg tablet 10 mg PO QID PRN Nausea #20 tabs 12/27/21 azithromycin 250 mg tablet 250 mg PO UD DOSE PK #6 tabs 05/24/22 (Zithromax) benzonatate 100 mg capsule 100 mg PO TIDP PRN Cough #30 caps 05/24/22 Allergies Allergy/AdvReac Type Severity Reaction Status Date / Time meperidine [From Demerol] Allergy Verified 05/14/21 10:16 Penicillins Allergy Verified 09/22/21 19:14 [facility] Medical History Anxiety Depression History of gastroesophageal reflux (GERD) Hyperlipidemia Hypertension Kidney stone Migraine Thyroid disease Urinary tract infection Surgical History History of appendectomy History of section History of cholecystectomy History of tubal ligation Social History Smoking Status: Current every day smoker tobacco type: cigarettes packs per day: 1 alcohol intake: never substance use type: heroin, opiates and methamphetamine current occupational status: other Travel in the last 8 weeks: None ROS Obtained: Yes All systems reviewed & no additional complaints except as documented Constitutional Constitutional: Denies chills and Denies fever(s) Eyes Eyes: Denies eye discharge ENT Ears, Nose, Mouth, and Throat: Denies dizziness, Denies otalgia and Denies sore throat Cardiovascular Cardiovascular: Denies chest pain Respiratory Respiratory: Denies shortness of breath, Denies chest congestion, Denies cough, Denies stridor and Denies wheezin
[2022-05-24 14:13] LABS: UTC Strep Screen (Rapid) Negative (Negative)
[2022-05-24 14:59] VITALS: BP 135/86; PULSE 100; RESP 20; TEMP 36.9; O2SAT 95
== END 2022-05-24 15:11 | disposition home or self-care (01) ==
PROVIDERS: Emergency Provider Nurse Practitioner Family; PCP Nurse Practitioner
DX: J02.9 Acute pharyngitis, unspecified (principal); R50.9 Fever, unspecified; M79.10 Myalgia, unspecified site; R05.9 Cough, unspecified; Z20.822 Contact with and (suspected) exposure to COVID-19; K21.9 Gastro-esophageal reflux disease without esophagitis; E78.5 Hyperlipidemia, unspecified; E07.9 Disorder of thyroid, unspecified; G43.909 Migraine, unspecified, not intractable, without status migrainosus; F32.A Depression, unspecified; F41.9 Anxiety disorder, unspecified; F17.210 Nicotine dependence, cigarettes, uncomplicated; Z79.52 Long term (current) use of systemic steroids; Z79.899 Other long term (current) drug therapy; Z88.0 Allergy status to penicillin; Z88.5 Allergy status to narcotic agent; Z87.440 Personal history of urinary (tract) infections; Z87.442 Personal history of urinary calculi
CPT/HCPCS: 87880; 99213; C9803; G0463; U0003; U0005